=== PATIENT | female | born 1970 | race African-American/Black ===

== ENCOUNTER 2020-04-27 15:28 | Emergency (ER) | payer BC, SELFPAY ==
[2020-04-27 15:37] VITALS: BP 131/76; PULSE 108; RESP 20; TEMP 36.6; O2SAT 98
--- NOTE | 2020-04-27 16:00 | ED.URI ---
HPI - URI/Sore Throat General Chief Complaint: Upper Respiratory Infection Stated Complaint: sinus issues Time Seen by Provider: 04/27/20 15:45 Source: patient and RN notes reviewed Mode of arrival: ambulatory Limitations: no limitations History of Present Illness HPI Narrative: 50-year-old female presents with concern for 1 week history nasal congestion, rhinorrhea, headache, general malaise, fatigue. Reports fever of 102, denies yxdo-mcb-[id number] cold medication. Reports she had a rapid Covid swab done Monday which was negative MD elicited complaint: nasal congestion Related Data Home Medications Medication Instructions Recorded Confirmed metronidazole 500 mg PO BID 04/27/20 04/27/20 sertraline 50 mg PO DAILY 04/27/20 04/27/20 zolpidem 5 mg PO HS 04/27/20 04/27/20 Allergies Allergy/AdvReac Type Severity Reaction Status Date / Time acetaminophen Allergy Unknown ALL OVER Verified 04/27/20 16:06 BURNING FEELING hydrocodone Allergy Unknown ALL OVER Verified 04/27/20 16:06 BURNING FEELING Review of Systems Review of Systems: Narrative: CONSTITUTIONAL: Reports malaise, chills, sweats, and fever. EYES: Denies visual changes, redness, or discharge. ENT: Reports rhinorrhea, congestion. Denies sinus pain, otalgia and sore throat. CARDIOVASCULAR: Denies chest pain, palpitations, or edema. RESPIRATORY: Denies cough or dyspnea. GASTROINTESTINAL: Denies abdominal pain, nausea, vomiting, diarrhea SKIN: Denies rash or itching. MUSCULOSKELETAL: Denies myalgia. NEUROLOGIC: Denies headache. All systems reviewed & are unremarkable except as noted in HPI and below PMFSH Comments At time of signature, agree with nursing past medical, surgical, social and family history. There is no relevant family history pertinent to the presenting complaint Exam Narrative: Exam Narrative: GENERAL: Well-appearing, well-nourished, and in no acute distress. HEAD: Normocephalic EYES: PERRLA, conjunctivae clear ENT: Nares clear, turbinates edematous and erythematous, clear discharge. Mucous membranes moist. TM pearly al with sharp light reflex bilaterally; no tragal tenderness. Oropharynx not erythematous without lesions. Tonsils not enlarged and without exudate, no drooling, no hoarseness, no trismus, uvula midline. NECK: Supple. No lymphadenopathy CHEST: Clear to auscultation, breath sounds equal. No wheezing, rhonchi, rales, or stridor. No respiratory distress, speaks in full sentences. HEART: Regular rate and rhythm. No murmur heard. SKIN: Warm, dry, no rash. NEURO: Alert and oriented x3. PSYCH: Normal mood and affect Course Course Emergency Course: Patient is aware of diagnosis, understands and agrees to treatment plan. Anticipatory guidance given. Patient agrees to follow-up as directed and is aware of reasons to seek care at the emergency department. Portions of this record may have been created with voice recognition software Vital Signs Vital signs: Vital Signs Temperature 97.8 F 04/27/20 15:37 Pulse Rate 108 H 04/27/20 15:37 Respiratory Rate 20 04/27/20 15:37 Blood Pressure 131/76 04/27/20 15:37 Pulse Oximetry 98 04/27/20 15:37 Temperature 97.8 F 04/27/20 15:37 Pulse Rate 108 H 04/27/20 15:37 Respiratory Rate 20 04/27/20 15:37 Blood Pressure 131/76 04/27/20 15:37 Pulse Oximetry 98 04/27/20 15:37 Reviewed. MDM - URI/Sore Throat MDM Narrative Medical decision making narrative: Differential diagnosis considered: Michael virus, strep pharyngitis, allergic rhinitis, upper respiratory tract infection, sinusitis, rhinosinusitis, nasopharyngitis. viral pharyngitis, otitis media, otitis externa, pneumonia, bronchitis, viral cough syndrome, viral syndrome, and influenza. Exam findings show no acute concerns or changes; patient is non-toxic appearing and is in no distress. Patient is appropriate for outpatient treatment and follow-up. Lab Data Attestation: I reviewed the patient's lab re
== END 2020-04-27 16:26 | disposition home or self-care (01) ==
PROVIDERS: Emergency Provider Nurse Practitioner; PCP Family Medicine
DX: J06.9 Acute upper respiratory infection, unspecified (principal); Z20.828 Contact with and (suspected) exposure to other viral communicable diseases
CPT/HCPCS: 87804; 99213; G0463

== ENCOUNTER 2020-05-06 08:30 | Emergency (ER) | payer BC, SELFPAY ==
[2020-05-06 08:37] VITALS: BP 115/59; PULSE 74; RESP 16; TEMP 36.3; O2SAT 97
--- NOTE | 2020-05-06 08:55 | ED.EYEPROB ---
HPI - Eye Problem General Chief complaint: Eye Problems Stated complaint: R EYE INFECTION Time Seen by Provider: 05/06/20 08:41 Source: patient and RN notes reviewed Mode of arrival: ambulatory Limitations: no limitations History of Present Illness HPI Narrative: Patient presents today complaining of irritation, redness, and draining to the right eye since yesterday morning. She woke up yesterday morning with crusting and matting of the eyelashes as well. Denies vision changes or photophobia. She does wear contacts and has recently slept in them. She was diagnosed with a viral upper respiratory infection last week, and states that the symptoms have been improving. She has tried no dtxc-srt-rhtwoga treatment prior to arrival. MD chief complaint: eye redness Related Data Home Medications Medication Instructions Recorded Confirmed sertraline 50 mg PO DAILY 04/27/20 05/06/20 zolpidem 5 mg PO HS 04/27/20 05/06/20 Allergies Allergy/AdvReac Type Severity Reaction Status Date / Time acetaminophen Allergy Unknown ALL OVER Verified 05/06/20 08:45 BURNING FEELING hydrocodone Allergy Unknown ALL OVER Verified 05/06/20 08:45 BURNING FEELING Review of Systems Review of Systems: Narrative: CONSTITUTIONAL: Denies body aches, fever, chills, or sweats. EYES: Denies visual changes. + Right eye redness, drainage, matting ENT: Denies rhinorrhea, congestion, sore throat, or otalgia. CARDIOVASCULAR: Denies chest pain, palpitations, or edema. RESPIRATORY: Denies cough or dyspnea. GASTROINTESTINAL: Denies abdominal pain, nausea, vomiting, or diarrhea. GENITOURINARY: Denies dysuria or hematuria. SKIN: Denies rash, itching, or wounds. MUSCULOSKELETAL: Denies back pain, joint pain, or myalgia. NEUROLOGIC: Denies headache, numbness, tingling, or weakness. PSYCH: Denies depression or anxiety. [facility] Past Medical History Medical History (Updated 05/06/20 @ 08:59 by Caitlyn Garcia, SCHOOL BOAT DRIVER, ) Depression Insomnia Comments At time of signature, I have reviewed and agree with nursing past medical, surgical, social and family history unless otherwise noted. Please see nursing chart for further information. There is no relevant family history pertinent to the presenting complaint Exam Narrative: Exam Narrative: GENERAL: Well-appearing, well-nourished, and in no acute distress. HEAD: Normocephalic, atraumatic. EYES: EOMI. PERRL. Right eye: Eyelashes matted with yellow crusting drainage. Conjunctiva injected and mildly edematous. Left eye normal. ENT: Mucous membranes pink and moist. Nares clear. No rhinorrhea. TMs normal bilaterally. Throat normal. Uvula midline. NECK: Normal AROM. CHEST: No respiratory distress. EXTREMITIES: Normal range of motion. No edema. SKIN: Warm, dry, no rash. Capillary refill normal. Normal skin turgor. NEURO: No focal deficits. Alert and oriented x3. Gait steady. PSYCH: Normal affect. No signs of depression or anxiety. Course Vital Signs Vital signs: Vital Signs Temperature 97.4 F L 05/06/20 08:37 Pulse Rate 74 05/06/20 08:37 Respiratory Rate 16 05/06/20 08:37 Blood Pressure 115/59 L 05/06/20 08:37 Pulse Oximetry 97 05/06/20 08:37 Temperature 97.4 F L 05/06/20 08:37 Pulse Rate 74 05/06/20 08:37 Respiratory Rate 16 05/06/20 08:37 Blood Pressure 115/59 L 05/06/20 08:37 Pulse Oximetry 97 05/06/20 08:37 Reviewed MDM - Eye Problem Differential Diagnosis Differential diagnosis: Likely corneal abrasion, conjunctivitis, acute iritis, periorbital cellulitis and subconjunctival hemorrhage Critical Care Time Critical Care Time Critical Care Time: No Discharge Plan Discharge Clinical Impression: Bacterial conjunctivitis Patient Disposition: Home, Self-Care Condition: Stable Instructions: Conjunctivitis (ED) Additional Instructions: Please use eyedrops as directed. Do not sleep in your contacts, and wear your glasses until th
== END 2020-05-06 09:02 | disposition home or self-care (01) ==
PROVIDERS: Emergency Provider Nurse Practitioner; PCP Family Medicine
DX: H10.89 Other conjunctivitis (principal); F32.9 Major depressive disorder, single episode, unspecified
CPT/HCPCS: 99213; G0463

== ENCOUNTER 2020-12-03 11:13 | Emergency (ER) | payer BC, SELFPAY ==
[2020-12-03 11:26] VITALS: BP 131/80; PULSE 66; RESP 16; TEMP 36.4; O2SAT 98
--- NOTE | 2020-12-03 12:30 | ED.EYEPROB ---
HPI - Eye Problem General Chief complaint: Eye Problems Stated complaint: eye irritiation Source: patient and RN notes reviewed Mode of arrival: ambulatory History of Present Illness HPI Narrative: This is a 50-year-old female who presented to urgent care with complaints of eye discharge, redness and itching to her left eye that started yesterday. Patient denies any visual disturbance, any trauma or foreign object in her eye. The patient denies SOB, CP, palpitation, extremity numbness, lightheadedness, dizziness, constipation, diarrhea, chills, or fever. MD chief complaint: eye pain and eye redness Related Data Home Medications Medication Instructions Recorded Confirmed sertraline 50 mg PO DAILY 04/27/20 05/06/20 zolpidem 5 mg PO HS 04/27/20 05/06/20 montelukast mg 12/03/20 Allergies Allergy/AdvReac Type Severity Reaction Status Date / Time acetaminophen Allergy Unknown ALL OVER Verified 12/03/20 11:27 BURNING FEELING hydrocodone Allergy Unknown ALL OVER Verified 12/03/20 11:27 BURNING FEELING Review of Systems Review of Systems: Narrative: A 14 organ system Review of Systems was performed and pertinent positives included in the HPI, otherwise remaining ROS is negative. All systems reviewed & are unremarkable except as noted in HPI and below PMFSH Past Medical History Medical History (Updated 12/03/20 @ 12:19 by JW Perry) Depression Insomnia Family History Family History (System 05/07/20 @ 08:32 by Jeimy Fong) Mother Family history of thyroid disease Hypertension Carcinoma of colon Father Family history of rheumatoid arthritis Social History Social History (System 05/07/20 @ 08:32 by Jeimy Fong) Smoking status: Former smoker Second hand tobacco smoke exposure: No Smoking end date: 05/15/06 Alcohol intake: current Exam Narrative: Exam Narrative: GENERAL: This is a well-nourished, well-developed patient, in no apparent distress. HEAD: normocephalic, atraumatic. EYES: Erythematous to the left eye. Vision is grossly intact. EARS: External ears normal, auditory canals clear and without drainage, TMs normal without perforation. Hearing grossly intact. NOSE: External nose normal with no obvious nasal discharge, nares without redness, no rhinorrhea. THROAT: Mucous membranes moist, posterior pharynx clear. NECK: Neck supple, non-tender without lymphadenopathy, masses or thyromegaly. CARDIOVASCULAR: Regular rate and rhythm without murmurs, gallops, or rubs. RESPIRATORY: Clear to auscultation. Breath sounds equal bilaterally. No wheezes, rales, or rhonchi. GASTROINTESTINAL: Abdomen soft, non-tender, nondistended. Bowel sounds are active. No hepato-splenomegaly, or palpable masses. No guarding. SKIN: warm, intact with no suspicious lesions or rash, good texture and turgor. NEURO: awake, alert, and oriented to person, place and time. There were no obvious focal neurologic abnormalities. Steady gait EXTREMITIES: Normal range of motion. No edema. No calf tenderness. Negative Homans sign bilaterally. BACK: Nontender without deformity or crepitance. No flank tenderness. Course Course Emergency Course: Patient will be treated for conjunctivitis Vital Signs Vital signs: Vital Signs Temperature 97.6 F 12/03/20 11:26 Pulse Rate 66 12/03/20 11:26 Respiratory Rate 16 12/03/20 11:26 Blood Pressure 131/80 12/03/20 11:26 Pulse Oximetry 98 12/03/20 11:26 Temperature 97.6 F 12/03/20 11:26 Pulse Rate 66 12/03/20 11:26 Respiratory Rate 16 12/03/20 11:26 Blood Pressure 131/80 12/03/20 11:26 Pulse Oximetry 98 12/03/20 11:26 MDM - Eye Problem Differential Diagnosis Differential diagnosis: Likely corneal abrasion and conjunctivitis Discharge Plan Discharge Clinical Impression: Conjunctivitis Qualifiers: Conjunctivitis type: acute Acute conjunctivitis type: unspecified Laterality: left Qualified Code(s): H10.3
== END 2020-12-03 12:35 | disposition home or self-care (01) ==
PROVIDERS: Emergency Provider Nurse Practitioner; PCP Family Medicine
DX: H10.32 Unspecified acute conjunctivitis, left eye (principal); Z87.891 Personal history of nicotine dependence; F32.9 Major depressive disorder, single episode, unspecified
CPT/HCPCS: 99213; G0463

== ENCOUNTER 2023-12-07 12:45 | Outpatient (CLI) | payer MEDICAID, SELFPAY ==
[2023-12-07 19:42] LABS: Anion Gap 9 mmol/L (4-12); Blood Urea Nitrogen 11 mg/dL (7-17); Calcium 8.8 mg/dL (8.4-10.2); Carbon Dioxide 27 mmol/L (22-30); Chloride 103 mmol/L (98-107); Estimated Glomerular Filt Rate > 60; Glucose 91 mg/dL (65-110); Potassium 4.1 mmol/L (3.4-5.0); Sodium 139 mmol/L (137-145)
[2023-12-07 21:32] LABS: Hemoglobin A1C 6.1 % (<5.7)
== END 2023-12-07 12:46 | disposition home or self-care (01) ==
LOC: ANHGOSHLAB 12:47
PROVIDERS: PCP Internal Medicine; Visit Provider Clinical Nurse Specialist
DX: R73.9 Hyperglycemia, unspecified (principal)
CPT/HCPCS: 36415; 80048; 83036

== ENCOUNTER 2024-12-26 10:45 | Outpatient (CLI) | payer BC, SELFPAY ==
--- OUTSIDE RECORDS SUMMARY | 2024-12-26 11:00 | XMS_ITS | Encounter Summary ---
Author Organization [facility] Healthcare Address [address] [place] [address] Care Team Providers Care Cut Off Machine Helper Name Role Phone Unavailable Primary Care Provider Unavailabl e Reason for Visit * Diagnostic Imaging (Routine) - Closed Specialty Diagnoses / Procedures Referred By Contac t Referred To Contact Procedures Breast Imaging Screening Outside Reference Transcribed Order, Provider Referral ID Status Reason Start Date Expiration Date Visits Re quested Visits Authorized [id number] Closed 06/06/2023 07/05/2024 1 1 Encounter Details Date Type Department Care Team (Late st Contact Info) Description 05/30/2007 Hospital Encounter [facility] [address] [place] [id number] Social History Tobacco Use Types Packs/Day Years Used Date Smoking Tobacco: Former Cigarettes Q uit: 05/31/2013 Smokeless Tobacco: Never Alcohol Use Standard Drinks/Week Comments Yes 0 (1 standard drink = 0.6 oz pur e alcohol) social Personal Safety Answer Date Recorded Getting School Help Needed Not on file 04/29 Comments Unknown Sex and Gender Information Value Date Recorded Sex Assigned at Not on file Legal Sex 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 Gender Identity Not on file Sexual Orientation Not on file documented as of this encounter Plan of Treatment Not on file documented as of this encounter Procedures Procedure Name Priority Date/Time Associated Diagnosis Comments BREAST IMAGING MG SCREENING OUTSIDE REFERENCE Routine 05/30/2007 12:00 AM COAL CONVEYOR OPERATOR documented in this encounter Results * Breast Imaging Screening Outside Reference (05/30/2007 12:00 AM COAL CONVEYOR OPERATOR) Impressions [facility] - 06/06/2023 1:06 PM COAL CONVEYOR OPERATOR These images are for Reference purposes only and have not been reviewed by [facility]. There will be no report generated by a [facility] Radiologist. Narrative [facility] - 06/06/2023 1:06 PM COAL CONVEYOR OPERATOR EXAMINATION: Images For Reference Purposes Only us Provider Transcribed Order IMG MAMMO PROCEDURES Final Result [facility] documented in this encounter Visit Diagnoses Not on filedocumented in this encounter
--- OUTSIDE RECORDS SUMMARY | 2024-12-26 11:00 | XMS_ITS | Encounter Summary ---
Author Organization [facility] Healthcare Address [address] [place] [address] Care Team Providers Care Locomotive Lubricating Systems Clerk Name Role Phone Unavailable Primary Care Provider Unavailabl e Reason for Visit * Diagnostic Imaging (Routine) - Closed Specialty Diagnoses / Procedures Referred By Contac t Referred To Contact Procedures Breast Imaging Screening Outside Reference Transcribed Order, Provider Referral ID Status Reason Start Date Expiration Date Visits Re quested Visits Authorized [id number] Closed 06/06/2023 07/05/2024 1 1 Encounter Details Date Type Department Care Team (Late st Contact Info) Description 03/10/2010 Hospital Encounter [facility] [address] [place] [id number] Social History Tobacco Use Types Packs/Day Years [...] on file Legal Sex Female 6:28 PM GRADES 1 THRU 6 VISITING TEACHER Gender Identity Not on file Sexual Orientation Not on file documented as of this encounter Plan of Treatment Not on file documented as of this encounter Procedures Procedure Name Priority Date/Time Associated Diagnosis Comments BREAST IMAGING MG SCREENING OUTSIDE REFERENCE Routine 03/10/2010 12:00 AM CDT documented in this encounter Results * Breast Imaging Screening Outside Reference (03/10/2010 12:00 AM CDT) Impressions [facility] - 06/06/2023 1:04 PM GRADES 1 THRU 6 VISITING TEACHER These images are for Reference purposes only and have not been reviewed by [facility]. There will be no report generated by a [facility] Radiologist. Narrative [facility] - 06/06/2023 1:04 PM GRADES 1 THRU 6 VISITING TEACHER EXAMINATION: Images For Reference Purposes Only us Provider Transcribed Order IMG MAMMO PROCEDURES Final Result [facility] documented in this encounter Visit Diagnoses Not on filedocumented in this encounter
--- OUTSIDE RECORDS SUMMARY | 2024-12-26 11:00 | XMS_ITS | Clinical Summary ---
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 Gender Identity Not on file Sexual Orientation Not on file Plan of Treatment Health Maintenance Due Date Last Done Comments DTAP/TDAP/TD VACCINES (1 - Tdap) 01/25/1987 HEPATITIS B VACCINES (1 of 3 - 19+ 3-dose series) 01/13 HPV/Cotest (21-29) 01/25/1989 CERVICAL CANCER SCREENING 01/25/1998 HPV/Cotest (30-65) 01/25/1998 PAP SMEAR 01/25/1998 BREAST CANCER SCREENING 2008 COLORECTAL SCREENING 01/25/2013 Colorectal Cancer Screening 01/25/2013 FIT-DNA Q 3 years 01/25/2013 FIT/FOBT Q 1 year 01/25/2013 Flex Sig/CT Colonography Q 5 years 01/25/2013 ZOSTER VACCINE (1 of 2) 01/25/2018 INFLUENZA VACCINE (#1) 2024
--- OUTSIDE RECORDS SUMMARY | 2024-12-26 11:00 | XMS_ITS | Encounter Summary ---
Author Organization [employer] Address [address] [place] [address] Care Team Providers Care Reinforcing Iron Worker Helper Name Role Phone Unavailable Primary Care Provider Unavailabl e Encounter Details Date Type Department Care Team (Latest Contact Info) Description 05/19/2006 Inpatient Historical HIS PATIENT IN A BED Petrona King MD [address] [facility] [address] [place] [address] Recur Major Depres, Psychotic (CMS/HCC) (Primary Dx) Social History Tobacco Use Types Packs/Day Years Used Date Smoking Tobacco: Never Assessed Comments Unknown Sex and Gender Information Value Date Recorded Sex Assigned at Not on file Legal Sex Female 5:15 AM STEWARDESSES TEACHER Gender Identity Not on file Sexual Orientation Not on file documented as of this encounter Plan of Treatment Not on file documented as of this encounter Procedures Procedure Name Priority Date/Time Associated Diagnosis Comments DRUG SCREEN, URINE Routine 05/20/2006 1: 05 PM STEWARDESSES TEACHER URINALYSIS WITH MICROSCOPIC Routine 05/20/2006 1:05 PM STEWARDESSES TEACHER HCG QUALITATIVE, URINE Routine 7 1:05 PM STEWARDESSES TEACHER CBC WITH DIFFERENTIAL Routine 05/19/2006 5:50 AM STEWARDESSES TEACHER CBC WITH DIFFERENTIAL Routine 05/19/2006 5:50 AM STEWARDESSES TEACHER TSH Routine 05/19/2006 5:50 AM STEWARDESSES TEACHER COMPREHENSIVE METABOLIC PANEL Routine 05/19/2006 5:50 AM STEWARDESSES TEACHER documented in this encounter Results * (ABNORMAL) URINALYSIS WITH MICROSCOPIC (05/20/2006 1:05 PM STEWARDESSES TEACHER) COLOR UA Yellow INTERFACE SYSTEM CLARITY UA Slt. Cloudy(A) Clear INTERFACE SYSTEM SPECIFIC GRAVITY UA 1.012 1.001 - 1.035 INTERFACE SYSTEM PH UA 6.0 5.0 - 8.0 INTERFACE SYSTEM LEUKOCYTE ESTERASE UA Negative Negative INTERFACE SYSTEM NITRITE UA Negative Negative INTERFACE SYSTEM PROTEIN UA Negative Negative INTERFACE SYSTEM GLUCOSE UA Negative Negative INTERFACE SYSTEM KETONES UA Negative Negative INTERFACE SYSTEM UROBILINOGEN UA <1 <=1 mg/dL INTE RFACE SYSTEM BILIRUBIN UA Negative Negative INTERFA CE SYSTEM BLOOD UA Negative Negative INTERFACE SYSTEM WBC UA 4 0 - 5 /HPF INTERFACE SYSTEM RBC UA 1 0 - 4 /HPF INTERFACE SYSTEM BACTERIA UA 1+(A) None Seen /HPF INTERFACE SYSTEM EPITHELIAL CELLS, URINE Many /HPF INTERFACE SYSTEM 05/20/2006 1:05 PM STEWARDESSES TEACHER Petrona King MD URINE ORDERABLES Edited Performing Organization Address City/[facility] de Phone Number INTERFACE SYSTEM Refer to clinic/hospital department * BETA HCG QUALITATIVE, URINE (05/20/2006 1:05 PM STEWARDESSES TEACHER) HCG QUAL URINE Negative Negative INTER FACE SYSTEM SPECIFIC GRAVITY UA 1.012 1.001 - 1.035 INTERFACE SYSTEM 05/20/2006 1:05 PM STEWARDESSES TEACHER Petrona King MD URINE ORDERABLES Edited Performing Organization Address [facility] de Phone Number INTERFACE SYSTEM Refer to clinic/hospital department * DRUG SCREEN, URINE (05/20/2006 1:05 PM STEWARDESSES TEACHER) COMMENT, TOXICOLOGY See Separate Comment INTERFACE SYSTEM Comment: Urine sample was not handled as a legal specimen and was received without a chain of custody. The result should be used only for medical purposes. False positive and erroneous results can occur due to cross-reacting sub stances and other factors. Depending on the clinical context, confirmation of all presumptive positive results by a more specific alternate method is recommended. A negative result indicates the analyte, if present, is below the screening threshold. Drug Ref. Range Screening Threshold Amphetamines Negative 1000 ng/mL Barbituates Negative 200 ng/mL Benzodiazepines Negative 300 ng/mL Cannabinoids Negative 50 ng/mL Cocaine Metabolites Negative 300 ng/mL Opiates Negative 300 ng/mL Phencycldine Negative 25 ng/mL The cut-off threshold, known cross-reactive compounds, drugs,and specificity information for each of the urine drugs of abuse are available on the [facility] Intranet at: [email or web address] Select: Drugs of Abuse ? [facility] To inquire about any potential cross-reactivity of a specific drug not listed at this site, please contact the Chemistry Lab at . AMPHETAMINE QUAL, URINE Negative Negative INTERFACE SYSTEM BARBITURATE QUAL, URINE Negative Negative INTERFACE SYSTEM BENZODIAZEPINE QUAL, URINE Negative Negative INTERFACE SYSTEM CANNABINOIDS QUAL, URINE Negative Negative INTERFACE SYSTEM COCAINE QUAL URINE Negative Negative I NTERFACE SYSTEM OPIATE QUAL, URINE Negative Negative I NTERFACE SYSTEM PCP QUAL, URINE Negative Negative INTE RFACE SYSTEM 05/20/2006 1:05 PM STEWARDESSES TEACHER us Petrona King MD URINE ORDERABLES Edited INTERFACE SYSTEM Refer to clinic/hospital department * CBC WITH DIFFERENTIAL (05/19/2006 5:50 AM STEWARDESSES TEACHER) NEUTROPHILS 56 45 - 70 % INTERFAC E SYSTEM LYMPHOCYTES 30 16 - 45 % INTERFAC E SYSTEM MONOCYTES 13 3 - 13 % INTERFACE SYSTEM EOSINOPHILS 2 0 - 7 % INTERFAC E SYSTEM BASOPHILS 0 0 - 2 % INTERFACE SYSTEM NEUTROPHIL ABSOLUTE 4.54 1.90 - 7.00 K/uL INTERFACE SYSTEM LYMPHOCYTE ABSOLUTE 2.46 0.70 - 4.50 K/uL INTERFACE SYSTEM MONOCYTE ABSOLUTE 1.03 0.10 - 1.30 K/uL INTERFACE SYSTEM EOSINOPHIL ABSOLUTE 0.13 0.00 - 0.70 K/uL INTERFACE SYSTEM BASOPHILS ABSOLUTE 0.02 0.00 - 0.20 K/uL INTERFACE SYSTEM 05/19/2006 5:50 AM STEWARDESSES TEACHER Evan Pelaez (Excluded Provider) Fernando LIVINGSTON HEMATOLO GY ORDERABLES Edited INTERFACE SYSTEM Refer to clinic/hospital department * (ABNORMAL) CBC WITH DIFFERENTIAL (05/19/2006 5:50 AM STEWARDESSES TEACHER) WBC 8.2 4.0 - 9.8 K/uL INTERFACE SYSTEM RBC 4.40 3.90 - 4.90 M/uL INTERFACE SYSTEM HEMOGLOBIN 12.6 11.8 - 14.8 g/dL INTERFACE SYSTEM HEMATOCRIT 37.7 35.5 - 44.0 % INTERFACE SYSTEM MCV 85.7 82.0 - 99.0 fL INTERFACE SYSTEM MCH 28.6 27.2 - 32.6 pg INTERFACE SYSTEM MCHC 33.4 31.5 - 35.5 % INTERFACE SYSTEM RDW 13.3 11.5 - 14.5 % INTERFACE SYSTEM RDW-STDEV 41.7 37.1 - 48.7 fL INTERFACE SYSTEM PLATELETS 392(H) 140 - 350 K/uL INTERFACE SYSTEM MPV 10.1 9.3 - 12.4 fL INTERFACE SYSTEM 05/19/2006 5:50 AM STEWARDESSES TEACHER [facility] (Excluded Provider) Fernando LIVINGSTON HEMATOLO GY ORDERABLES Edited Performing Organization Address [facility] de Phone Number INTERFACE SYSTEM Refer to clinic/hospital department * TSH (05/19/2006 5:50 AM STEWARDESSES TEACHER) TSH 1.28 0.27 - 4.20 uU/mL INTERFACE SYSTEM 05/19/2006 5:50 AM STEWARDESSES TEACHER [facility] (Excluded Provider) Fernando LIVINGSTON CHEMISTR Y ORDERABLES Edited Performing Organization Address [facility] Co de Phone Number INTERFACE SYSTEM Refer to clinic/hospital department * (ABNORMAL) COMPREHENSIVE METABOLIC PANEL (05/19/2006 5:50 AM STEWARDESSES TEACHER) GLUCOSE 91 65 - 99 mg/dL INTERFACE SYSTEM CREATININE 0.91 0.51 - 0.95 mg/dL INTERFACE SYSTEM CALCIUM 8.8 8.4 - 10.2 mg/dL INTERFACE SYSTEM ALKALINE PHOSPHATASE 81 35 - 104 U/L INTERFACE SYSTEM AST 17 12 - 32 U/L INTERFACE SYSTEM ALT 17 0 - 31 U/L INTERFACE SYSTEM TOTAL PROTEIN 7.5 6.3 - 8.6 g/dL INTERFACE SYSTEM ALBUMIN 3.9 3.4 - 4.8 g/dL INTERFACE SYSTEM BILIRUBIN TOTAL 0.2 0.2 - 1.0 mg/dL INTERFACE SYSTEM BUN 11 6 - 20 mg/dL INTERFACE SYSTEM SODIUM 140 135 - 145 mmol/L INTERFACE SYSTEM POTASSIUM 3.9 3.5 - 4.9 mmol/L INTERFACE SYSTEM CHLORIDE 101 96 - 108 mmol/L INTERFACE SYSTEM CO2 31(H) 22 - 30 mmol/L INTERFACE SYSTEM GFR, >60 >=60 mL/min/1.7 sq meter INTERFACE SYSTEM GFR >60 >=60 mL/min/1.7 sq meter INTERFACE SYSTEM Comment: Estimated GFR rate interpretative information for both Americans and non- Americans is available on the [facility] Intranet at: [email or web address] lumpkinLoop/[email or web address] Select: Lab Policies and Procedures Select: Reference Ranges - GFR 05/19/2006 5:50 AM STEWARDESSES TEACHER Mohd Azfar (Excluded Provider) Fernando LIVINGSTON CHEMISTR Y ORDERABLES Edited INTERFACE SYSTEM Refer to clinic/hospital department documented in this encounter Visit Diagnoses Diagnosis Major depressive disorder, recurrent episode, severe, specified as with psychotic behavior (CMS/HCC)- Primary Major depressive disorder, recurrent episode, severe, specified as with psychotic behavior documented in this encounter
--- OUTSIDE RECORDS SUMMARY | 2024-12-26 11:00 | XMS_ITS | Encounter Summary ---
Author Organization [facility] Address [address] [place] [address] Care Team Providers Care Production Intern Name Role Phone Maurice Roche MD Primary Care Provider [phone] Sonido Ferrari MD Unavailable [phone] Encounter Details Date Type Department Care Team (Late st Contact Info) Description 09/17/2019 Hospital Follow-up Call [facility] Telemetry Unit [address] [place] [address] Farideh Pereyra, RN Social History Tobacco Use Types Packs/Day Years Used Date Smoking Tobacco: Every Day Cigarettes Smokeless Tobacco: Never Alcohol Use Standard Drinks/Week Comments Yes 3 (1 standard drink = 0.6 oz pur e alcohol) weekly Humiliation, Afraid, Rape, and Kick questionnair e Answer Date Recorded Fear of Current or Ex-Partner No Emotionally Abused No 09/13/2019 Physically Abused No 09/13/2019 Sexually Abused No 09/13/2019 Social Connection and Isolat ion Panel [NHANES] Answer Date Recorded Frequency of Communication w ith Friends and Family More than three times a week 09/13/2019 Frequency of Social Gatherin gs with Friends and Family More than three times a week 09/13/2019 Attends Jehovah'S Witness Services More than 4 times per year 09/13/2019 Active Member of Clubs or Organizations No 09/13/2019 Attends Club or Organization Meetings Never 09/13/2019 Marital Status 09/13/2019 Overall Financial Resource Strain (CARDIA) Answe r Date Recorded Difficulty of Paying Living Expenses Not hard at all 09/13/2019 [facility] [place] [facility] Occup[facility] ional [facility] - Occupational Stress Questionnaire Answer Date Recorded Feeling of Stress To some extent 09/13/2019 Exercise Vital Sign Answer Date Recorde d Days of Exercise per Week 0 days 2019 Minutes of Exercise per Session 0 min 09/13/2019 Hunger Vital Sign Answer Date Recorded Worried About Running Out of Food in the Last Ye ar Never true 09/13/2019 Ran Out of Food in the Last Year Never true 09/13/2019 PRAPARE - Transportation Answer Date Re corded Lack of Transportation (Medical) No 09/13/2019 Lack of Transportation (Non-Medical) No 09/13/2019 Comments No Sex and Gender Information Value Date Recorded Sex Assigned at Not on file Legal Sex Female 9:41 PM CDT Gender Identity Not on file Sexual Orientation Not on file COVID-19 Exposure Response Date Recorded In the last month, have you been in contact with someone who was confirmed or suspected to have Coronavirus / COVID-19? No / Unsure 09/20/2019 11:05 AM CDT documented as of this encounter Functional Status * RETIRED Are you deaf or do you have serious difficulty hearing Answer Date of Assessment Author Status No 09/14/2019 4:02 PM CDT Activ e * RETIRED Are you blind or do you have serious difficulty seeing, even when wearing glasses? Answer Date of Assessment Author Status No 09/14/2019 4:02 PM CDT Activ e * Do you have serious difficulty walking or climbing stairs? Answer Date of Assessment Author Status No 09/14/2019 4:02 PM CDT Amna Lee R N Active * Do you have difficulty dressing or bathing? Answer Date of Assessment Author Status No 09/14/2019 4:02 PM CDT Amna Lee R N Active * Because of a physical, mental, or emotional condition, do you have difficulty doing errands alone such as visiting a doctor's office or shopping? Answer Date of Assessment Author Status No 09/14/2019 4:02 PM CDT Amna Lee R N Active documented as of this encounter Mental Status * Because of a physical, mental, or emotional condition, do you have serious difficulty concentrating, remembering, or making decisions? Answer Entry Date Author Status No 09/14/2019 4:02 PM CDT Amna Lee R N Active documented in this encounter Plan of Treatment Not on file documented as of this encounter Visit Diagnoses Not on filedocumented in this encounter Care Teams Production Intern Relationship Specialty Start Date End Date Maurice Roche MD [address] [place] [address] PCP - General FAMILY PRACTICE 09/13/19 Sonido Ferrari MD [address] [address] Consulting Physician CARDIOVASCULAR DISEASE 09/13/19 documented as of this encounter
--- OUTSIDE RECORDS SUMMARY | 2024-12-26 11:00 | XMS_ITS | Encounter Summary ---
Author Organization [facility] Healthcare Address [address] [place] [address] Care Team Providers Care Asphalt Heater Tender Name Role Phone Unavailable Primary Care Provider Unavailabl e Reason for Visit * Diagnostic Imaging (Routine) - Closed Specialty Diagnoses / Procedures Referred By Contac t Referred To Contact Procedures Breast Imaging Screening Outside Reference Transcribed Order, Provider Referral ID Status Reason Start Date Expiration Date Visits Re quested Visits Authorized [id number] Closed 06/06/2023 07/05/2024 1 1 Encounter Details Date Type Department Care Team (Late st Contact Info) Description 08/05/2015 Hospital Encounter [facility] [address] [place] [id number] Social History Tobacco Use Types Packs/Day Years [...] on file Legal Sex Female 6:28 PM SALES REPRESENTATIVE ADVERTISING Gender Identity Not on file Sexual Orientation Not on file documented as of this encounter Plan of Treatment Not on file documented as of this encounter Procedures Procedure Name Priority Date/Time Associated Diagnosis Comments BREAST IMAGING MG SCREENING OUTSIDE REFERENCE Routine 08/05/2015 12:00 AM CDT documented in this encounter Results * Breast Imaging Screening Outside Reference (08/05/2015 12:00 AM CDT) Impressions [facility] - 06/06/2023 1:02 PM SALES REPRESENTATIVE ADVERTISING These images are for Reference purposes only and have not been reviewed by [facility]. There will be no report generated by a [facility]iologist. Narrative [facility] - 06/06/2023 1:02 PM SALES REPRESENTATIVE ADVERTISING EXAMINATION: Images For Reference Purposes Only us Provider Transcribed Order IMG MAMMO PROCEDURES Final Result [facility] documented in this encounter Visit Diagnoses Not on filedocumented in this encounter
--- OUTSIDE RECORDS SUMMARY | 2024-12-26 11:00 | XMS_ITS | Encounter Summary ---
Author Organization [facility] Healthcare Address [address] [place] [address] Care Team Providers Care Clinical Sciences Professor Name Role Phone Unavailable Primary Care Provider Unavailabl e Reason for Visit * Diagnostic Imaging (Routine) - Closed Specialty Diagnoses / Procedures Referred By Contac t Referred To Contact Procedures Breast Imaging Diagnostic Outside Reference Transcribed Order, Provider Referral ID Status Reason Start Date Expiration Date Visits Re quested Visits Authorized [id number] Closed 06/06/2023 07/05/2024 1 1 Encounter Details Date Type Department Care Team (Late st Contact Info) Description 06/20/2007 Hospital Encounter [facility] [address] [place] [phone] Social History Tobacco Use Types Packs/Day Years [...] on file Legal Sex Female 6:28 PM CORPORATE ANALYST Gender Identity Not on file Sexual Orientation Not on file documented as of this encounter Plan of Treatment Not on file documented as of this encounter Procedures Procedure Name Priority Date/Time Associated Diagnosis Comments BREAST IMAGING MG DIAGNOSTIC OUTSIDE REFERENCE Routine 06/20/2007 12:00 AM CORPORATE ANALYST documented in this encounter Results * Breast Imaging Diagnostic Outside Reference (06/20/2007 12:00 AM CORPORATE ANALYST) Impressions [facility] - 06/06/2023 1:05 PM CORPORATE ANALYST These images are for Reference purposes only and have not been reviewed by [facility]. There will be no report generated by a [facility] Radiologist. Narrative [facility] - 06/06/2023 1:05 PM CORPORATE ANALYST EXAMINATION: Images For Reference Purposes Only us Provider Transcribed Order IMG MAMMO PROCEDURES Final Result [facility] documented in this encounter Visit Diagnoses Not on filedocumented in this encounter
--- OUTSIDE RECORDS SUMMARY | 2024-12-26 11:00 | XMS_ITS | Encounter Summary ---
Author Organization [facility] Healthcare Address [address] [place] [address] Care Team Providers Care Universal Grinder Set Up Operator Name Role Phone Unavailable Primary Care Provider Unavailabl e Reason for Visit * Diagnostic Imaging (Routine) - Closed Specialty Diagnoses / Procedures Referred By Contac t Referred To Contact Procedures Breast Imaging Screening Outside Reference Transcribed Order, Provider Referral ID Status Reason Start Date Expiration Date Visits Re quested Visits Authorized [id number] Closed 06/06/2023 07/05/2024 1 1 Encounter Details Date Type Department Care Team (Late st Contact Info) Description 07/03/2012 Hospital Encounter [facility] [address] [place] [phone] Social History Tobacco Use Types Packs/Day Years [...] on file Legal Sex Female 6:28 PM HOSPICE CASE MANAGER Gender Identity Not on file Sexual Orientation Not on file documented as of this encounter Plan of Treatment Not on file documented as of this encounter Procedures Procedure Name Priority Date/Time Associated Diagnosis Comments BREAST IMAGING MG SCREENING OUTSIDE REFERENCE Routine 07/03/2012 12:00 AM HOSPICE CASE MANAGER documented in this encounter Results * Breast Imaging Screening Outside Reference (07/03/2012 12:00 AM HOSPICE CASE MANAGER) Impressions [facility] - 06/06/2023 1:03 PM HOSPICE CASE MANAGER These images are for Reference purposes only and have not been reviewed by [facility]. There will be no report generated by a [facility] Radiologist. Narrative [facility] - 06/06/2023 1:03 PM HOSPICE CASE MANAGER EXAMINATION: Images For Reference Purposes Only us Provider Transcribed Order IMG MAMMO PROCEDURES Final Result [facility] documented in this encounter Visit Diagnoses Not on filedocumented in this encounter
--- OUTSIDE RECORDS SUMMARY | 2024-12-26 11:00 | XMS_ITS | Clinical Summary ---
Author Organization [facility] Address [address] [place] [address] Care Team Providers Care Conductor Road Freight Name Role Phone Unavailable Primary Care Provider Unavailabl e Source Comments [facility],non-owned Affiliates and Associated Physician Practices is amultiple site organization consisting of ambulatory clinics and hospital sitesin [place], [place] and [place]. This disclosure is being madepursuant to the Care Everywhere program and may not contain all information available regarding this patient. Last updated 18.[facility] Social History Tobacco Use Types Packs/Day Years Used Date Smoking Tobacco: Never Assessed Comments Unknown Sex and Gender Information Value Date Recorded Sex Assigned at Not on file Legal Sex Female 6:24 AM IRRIGATION ENGINEER Gender Identity Not on file Sexual Orientation Not on file Last Filed Vital Signs Vital Sign Reading Time Taken Comments Blood Pressure 122/72 06/03/2017 7:06 AM IRRIGATION ENGINEER Pulse 71 06/03/2017 7:06 AM IRRIGATION ENGINEER Temperature 36.7 C (98 F) 06/03/2017 7:06 AM IRRIGATION ENGINEER Respiratory Rate 16 06/03/2017 7:06 AM IRRIGATION ENGINEER Oxygen Saturation 98% 06/03/2017 7:06 AM IRRIGATION ENGINEER Inhaled Oxygen Concentration - - Weight 81.6 kg (180 lb) 06/03/2017 7:06 AM IRRIGATION ENGINEER Height 162.6 cm (5' 4) 06/03/2017 7:06 AM IRRIGATION ENGINEER Body Mass Index 30.9 06/03/2017 7:06 AM IRRIGATION ENGINEER Plan of Treatment Health Maintenance Due Date Last Done Comments COLOGUARD (AGES 45-75) - COL ON CA SCREENING 1968 COLON MONITORING 1968 COLONOSCOPY - COLON CA SCREENING 1968 CT COLONOGRAPHY - COLON CA SCREENING 1968 Colorectal Cancer Screening 1968 FIT - COLON CA SCREENING 1968 FLEX SIG - COLON CA SCREENING 1968 LIPID TESTING 1968 MAMMOGRAM 1968 HIV SCREENING 01/25/1983 HEPATITIS C SCREENING 01/21/1986 DTAP/TDAP/TD VACCINES (1 - Tdap) 01/25/1987 HEPATITIS B VACCINE (1 of 3 - 19+ 3-dose series) 01/25/1987 PNEUMOCOCCAL VACCINE 50+ (1 of 1 - PCV) 01/25/2018 ZOSTER VACCINE (1 of 2) 01/25/2018 COVID-19 VACCINE (1 - 2023-2 5 season) 2024 DEPRESSION SCREENING 05/15/2024 INFLUENZA VACCINE (#1) 2025 HIB VACCINE Aged Out No longer eligi ble based on patient's age to complete this topic HPV VACCINE Aged Out No longer eligi ble based on patient's age to complete this topic MENINGOCOCCAL (Group B) VACC INE SHARED DECISION-MAKING Aged Out No longer eligibl e based on patient's age to complete this topic MENINGOCOCCAL GROUPS A/C/Y/W VACCINE Aged Out No longer eligible b ased on patient's age to complete this topic
--- OUTSIDE RECORDS SUMMARY | 2024-12-26 11:01 | XMS_ITS | Encounter Summary ---
Author Organization [facility] Healthcare Address [address] [place] [address] Care Team Providers Care Cap Parts Cutter Name Role Phone Unavailable Primary Care Provider Unavailabl e Reason for Visit * Diagnostic Imaging (Routine) - Closed Specialty Diagnoses / Procedures Referred By Contac t Referred To Contact Procedures Breast Imaging Screening Outside Reference Transcribed Order, Provider Referral ID Status Reason Start Date Expiration Date Visits Re quested Visits Authorized [id number] Closed 06/06/2023 07/05/2024 1 1 Encounter Details Date Type Department Care Team (Late st Contact Info) Description 05/01/2018 Hospital Encounter [facility] [address] [place] [id number] Social History Tobacco Use Types Packs/Day Years [...] on file Legal Sex Female 6:28 PM MECHANICAL RESEARCH ENGINEER Gender Identity Not on file Sexual Orientation Not on file documented as of this encounter Plan of Treatment Not on file documented as of this encounter Procedures Procedure Name Priority Date/Time Associated Diagnosis Comments BREAST IMAGING MG SCREENING OUTSIDE REFERENCE Routine 05/01/2018 12:00 AM MECHANICAL RESEARCH ENGINEER documented in this encounter Results * Breast Imaging Screening Outside Reference (05/01/2018 12:00 AM MECHANICAL RESEARCH ENGINEER) Impressions [facility] - 06/06/2023 1:00 PM MECHANICAL RESEARCH ENGINEER These images are for Reference purposes only and have not been reviewed by [facility]. There will be no report generated by a [facility] Radiologist. Narrative [facility] - 06/06/2023 1:00 PM MECHANICAL RESEARCH ENGINEER EXAMINATION: Images For Reference Purposes Only us Provider Transcribed Order IMG MAMMO PROCEDURES Final Result [facility] documented in this encounter Visit Diagnoses Not on filedocumented in this encounter
--- OUTSIDE RECORDS SUMMARY | 2024-12-26 11:01 | XMS_ITS | Clinical Summary ---
Author Organization [facility] Address [facility] [place] [address] Care Team Providers Care Occupational Therapy Aide Name Role Phone Maurice Roche MD Primary Care Provider [phone] Sonido Ferrari MD Unavailable [phone] Allergies Active Allergy Reactions Criticality Noted Date Comments Hydrocodone-Acetamino phen Other (see comment) 09/13/2019 Makes my insides burn Medications escitalopram 20 MG tablet Take 20 mg by mouth daily. 07/24/2019 Active zolpidem 5 MG tablet Take 5 mg by mouth nightly at bedtime. 07/24/2019 Active aspirin 325 MG tablet Take 325 mg by mouth daily. Active Active Problems Problem Noted Date Diagnosed Date Anxiety 09/20/2019 A-fib ([facility]) 09/14/2019 New onset a-fib ([facility]) 09/13/2019 Social History Tobacco Use Types Packs/Day Years [...] than three times a week 09/13/2019 Attends [employer] More than 4 times per year 09/13/2019 Active Member of Clubs or Organizations No 09/13/2019 Attends Club or Organization Meetings Never 09/13/2019 Marital Status 09/13/2019 Overall Financial Resource Strain (CARDIA) Answe r Date Recorded Difficulty of Paying Living Expenses Not hard at all 09/13/2019 [facility] Occupat ional Health - Occupational Stress [...] Sign Reading Time Taken Comments Blood Pressure 120/68 01/09/2020 10:03 AM CDT Pulse 66 01/09/2020 10:03 AM CDT Temperature 36.3 C (97.4 F) 09/14/2019 3:15 PM CDT Respiratory Rate 18 09/14/2019 3:15 PM CDT Oxygen Saturation 97% 01/09/2020 10:03 AM CDT Inhaled Oxygen Concentration - - Weight 91.6 kg (202 lb) 01/09/2020 10:03 AM CDT Height 162.6 cm (5' 4) 01/09/2020 10:03 AM CDT Body Mass Index 34.67 01/09/2020 10:03 AM CDT Plan of Treatment Health Maintenance Due Date Last Done Comments Colorectal Cancer Screening Colonoscopy (10 Years) 1968 Annual Physical 01/25/1971 Hepatitis C 01/25/1986 DTaP, Tdap and Td Vaccines ( 1 - Tdap) 01/25/1987 Hepatitis B Vaccines (1 of 3 - 19+ 3-dose series) 01/25/1987 Pneumococcal Vaccine: 50+ Ye ars (1 of 2 - PCV) 01/25/1987 Mammogram Screening 2008 Zoster Vaccines (1 of 2) 01/25/2018 COVID-19 Vaccine (1 - 2023-2 5 season) 2024 Meningococcal B Vaccine Aged Out No l onger eligible based on patient's age to complete this topic Meningococcal Vaccine Aged Out No lor slim eligible based on patient's age to complete this topic RSV Immunizations Under 20 Months Aged Out No longer eligible based on patient's age to complete this [place] [id number] [facility] [place] [id number] Advance Directives * Full Code (Latest Code Status on File) Date Activated Date Inactivated Comments 09/13/2019 3:13 PM 09/14/2019 6:57 PM Care Teams Occupational Therapy Aide Relationship Specialty Start Date End Date Maurice Roche MD [address] [place] [address] PCP - General FAMILY PRACTICE 09/13/19 Sonido Ferrari MD NPI: [id number] [place] [address]. [address] [address] Consulting Physician CARDIOVASCULAR DISEASE 09/13/19
--- OUTSIDE RECORDS SUMMARY | 2024-12-26 11:01 | XMS_ITS ---
Author Organization Formerly [facility] [place] ([id number]) Address [address] [place] [address] Care Team Providers Care Public Health Nurse Name Role Phone Maurice Roche MD Primary Care Provider Unavail able Makenna Jones Unavailable [phone] [facility], Provider Unavailable Unavailab REASON FOR VISIT [facility] To [facility] Conversion Encounter Medications Medication SIG (Take, Route, Frequency, Duration) Notes Start Date End Date Status Zoloft 100 MG 1 tab(s) orally once a day Active Montelukast Sodium 10 MG 1 tab(s) orally once a day; Duration: 30 day(s) Active Ambien 5 MG 1 tab(s) orally once a day (at bedtime) Active Cetirizine HCl 10 MG 1 tab(s) orally Qday Active Famotidine 40 MG 1 tab(s) orally Qday Active Encounters Encounter Location Date Provider Diagnosis [address] [address] 10/28/2023 Provider [facility] Idiopathic urticaria L50.1 Assessments Encounter Date Diagnosis (ICD Code) Assessment Notes Treatment Notes Treatment Clinical Notes Section Notes 10/28/2023 Idiopathic urticaria (ICD-10 - L50.1) Plan Of Treatment Medication Medication Name Sig Start Date Stop Date Notes Zoloft 100 MG 1 tab(s) orally once a day Montelukast Sodium 10 MG 1 tab(s) orally once a day; Duration: 30 day(s) Ambien 5 MG 1 tab(s) orally once a day (at bedtime) Cetirizine HCl 10 MG 1 tab(s) orally Qday Famotidine 40 MG 1 tab(s) orally Qday Progress Notes * Stefani HADDADB:[birth year] (54 yo F)Acc No.[id number]:10/28/2023 Patient: Linnette SANTAMARIA Provider: Radha Limon :1970 A ge:53 Y S ex:Female Date:10/28/2023 Address:[address] [place] [address] [id number] Pcp:Maurice Roche MD Subjective: * Chief Complaints: * 1 . Multum To Medispan Conversion Encounter. * Medical History: Objective: * Vitals: Assessment: * Assessment: 1. I diopathic urticaria - L50.1 (Primary) Plan: * Treatment: 2. O thers Continue Ambien Tablet, 5 MG, 1 tab(s), orally, once a day (at bedtime); C ontinue Zoloft Tablet, 100 MG, 1 tab(s), orally, once a day; S tart Montelukast Sodium Tablet, 10 MG, 1 tab(s), orally, once a day, 30 day(s), 30, Refills 3. * Billing Information: * Visit Code: * Procedure Codes: * Electronic signature of Prov imanr [facility] on 12/26/2024 at 11:00 AM CDT Sign off status: Pending * Provider: Radha Limon Date: 10/28/2023 Generated for Yaw jurado/Tanner/Jayesh on: 12/26/2024 11:00 AM CDT
--- OUTSIDE RECORDS SUMMARY | 2024-12-26 11:01 | XMS_ITS | Clinical Summary ---
Author Organization [facility] [address] [place] [address] Care Team Providers Care Protozoologist Name Role Phone Bk Mathew DO Primary Care Provider [phone] Sushila Edmondson NP Unavailable [phone] Allergies Active Allergy Reactions Criticality Noted Date Comments Hydrocodone-Acetamin ophen Other (See comments) Low 09/13/2019 Makes my insides burn Medications zolpidem (AMBIEN) 5 mg tabletIndication s:Sleep-Onset Insomnia 2 05/10/[address] (VOLTAREN) 50 mg EC tablet 05/24/2018 Active VITAMIN D2 50,000 unit capsule 03/14/2018 Active escitalopram (LEXAPRO) 20 mg tablet 2 09/13/2018 Active aspirin 325 mg tablet Take 1 tablet (325 mg total) by mouth daily Active buPROPion XL (WELLBUTRIN XL) 150 mg 24 hr tablet Take 1 tablet (150 mg total) by mouth daily 02/16/2023 Active montelukast (SINGULAIR) 10 mg tablet Take 1 tablet (10 mg total) by mouth daily 02/24/2023 Active sertraline (ZOLOFT) 100 mg tablet Take 1 tablet (100 mg total) by mouth daily 02/24/2023 Active cetirizine (ZyrTEC) 10 mg tablet 1 tab(s) orally Qday Active famotidine (PEPCID) 40 mg tablet 1 tab(s) orally Qday Active Active Problems Problem Noted Date Diagnosed Date Breast pain, left 07/03/2023 Allergic rhinitis 03/28/2023 Chronic rhinitis 03/28/2023 Allergic rhinitis due to animal hair and dander 03/28/2023 Allergic rhinitis due to pollen 03/28/2023 Chronic allergic conjunctivitis 03/28/2023 Mild intermittent asthma 03/28/2023 Mild persistent asthma without complication 03/15 Moderate persistent asthma without complication 03/28/2023 Uncomplicated severe persistent asthma 3 Anxiety 09/20/2019 Atrial fibrillation 09/13/2019 Weight loss counseling, encounter for 06/30/2018 Assessment & Plan (06/30/2018 9:48 AM SEWING MACHINE OPERATOR ZIPPER): Discussed that weight loss will require calorie deficit. Calculated basal metabolic rate and estimated total energy expenditure; discussed 500-1000 kcal/day deficit to lose 1-2 lb per week. Asked to keep detailed food diary for at least 1 week and bring to next visit. Discussed relatively small, although significant, role of exercise in weight loss; greater importance in weight maintenance. Metabolic and nutritional disorder 06/30/2018 Assessment & Plan (06/30/2018 9:55 AM SEWING MACHINE OPERATOR ZIPPER): Discussed recent A1c 5.8 c/w prediabetes. Discussed insulin resistance including affect on weight and risk for progression to diabetes. Recommended low-carb, low-glycemic diet; choose whole grains and avoid more highly processed carbohydrates. Discussed potential benefits of this w/r/t gut microbiome. Referred to ADA and [facility] websites for additional information on topics including glycemic index/carbohydrate choices, protein sources. Consider metformin, GLP-1 analog. If not checked recently, check CBC, CMP, A1c, FLP, TSH/T4, B12, folic acid, vit D. Other fatigue 06/30/2018 Assessment & Plan (06/30/2018 9:51 AM SEWING MACHINE OPERATOR ZIPPER): Will review recent labs when available. Consider sleep study. Discussed importance of adequate sleep; good sleep hygiene in controlling weight as well as for overall health. Discussed comorbidities associated with sleep apnea, including effects on weight, and stressed importance of adequate treatment if present. Obesity (BMI 30-39.9) 06/30/2018 Assessment & Plan (06/30/2018 9:53 AM SEWING MACHINE OPERATOR ZIPPER): Obesity is unchanged. General weight loss/lifestyle modification strategies discussed (elicit support from others; identify saboteurs; non-food rewards, etc). Behavioral treatment: recommended counseling/CBT. Diet interventions: low calorie (1000 kCal/d) deficit diet. Informal exercise measures discussed, e.g. taking stairs instead of elevator. Regular aerobic exercise program discussed. More detailed recommendations pending review of labs, food record. Disordered eating 06/30/2018 Assessment & Plan (06/30/2018 9:54 AM SEWING MACHINE OPERATOR ZIPPER): Does not meet criteria for BED. May be a candidate for Contrave/bupropion in setting of depression. Depression 05/31/2018 Overview (05/31/2018): Since .Saw psychiatrist in the past. Immunizations Immunization Administration Dates Next Due PPD TEST 03/28/2023 Surgical History Surgery Date Site/Laterality Comments HYSTERECTOMY 05/15/2011 - 05/14/2012 Medical History Medical History Date Comments Sciatica Family History Medical History Relation Name Comments Glaucoma Father Brain cancer Father's Sister Colon cancer Mother Hypertension Mother Obesity Mother Multiple sclerosis Mother's Sister Relation Name Status Comments Father Father's Sister Mother Mother's Sister Social History Tobacco Use Types Packs/Day Years Used Date Smoking Tobacco: Former Cigarettes Q uit: 05/31/2013 Smokeless Tobacco: Never Tobacco Cessation:Counseling Given: Not Answered Alcohol Use Standard Drinks/Week Comments Yes 0 (1 standard drink = 0.6 oz pur e alcohol) social Personal Safety Answer Date Recorded Getting School Help Needed Not on file 04/29 Comments Unknown Sex and Gender Information Value Date Recorded Sex Assigned at Not on file Legal Sex Female 6:28 PM SEWING MACHINE OPERATOR ZIPPER Gender Identity Not on file Sexual Orientation Not on file Obstetrics History Last Filed Vital Signs Vital Sign Reading Time Taken Comments Blood Pressure 136/72 03/28/2023 3:18 PM SEWING MACHINE OPERATOR ZIPPER Pulse 64 03/28/2023 3:18 PM SEWING MACHINE OPERATOR ZIPPER Temperature 37 C (98.6 F) 03/28/2023 3:18 PM SEWING MACHINE OPERATOR ZIPPER Respiratory Rate 20 03/28/2023 3:18 PM SEWING MACHINE OPERATOR ZIPPER Oxygen Saturation 97% 03/28/2023 3:18 PM SEWING MACHINE OPERATOR ZIPPER Inhaled Oxygen Concentration - - Weight 90.7 kg (199 lb 15.3 oz) 07/03/2023 8:06 AM SEWING MACHINE OPERATOR ZIPPER Height 162.6 cm (5' 4.02) 07/03/2023 8:06 AM CS T Body Mass Index 34.31 07/03/2023 8:06 AM SEWING MACHINE OPERATOR ZIPPER Plan of Treatment Health Maintenance Due Date Last Done Comments Colon Cancer Screening-Colonoscopy 1970 Depression Screening 1970 Hepatitis C Screening 1968 DTaP/Tdap/Td Vaccine (1 - Tdap) 01/25/1979 Hepatitis B Screening 01/25/1986 Regular Well Visit/Exam 18-64 01/25/1986 Pneumococcal vaccine <65 (1 of 2 - PCV) 01/25/1987 Zoster Vaccine (1 of 2) 01/25/2018 Covid-19 Vaccine (4 - 2023-2 5 season) 2024 09/29/2021, 08/03/2020, 07/01/2020 Breast Cancer Screening-Mammogram 07/03/2024 024 Influenza Vaccine (#1) 2025 3, 02/18/2017, 02/05/2014, Additional history exists Procedures Procedure Name Priority Date/Time Associated Diagnosis Comments DIAGNOSTIC MAMMOGRAM BILATERAL W ANDREW Schedule Routine, Read Routine (OP Routine) 07/03/2023 9:24 AM SEWING MACHINE OPERATOR ZIPPER Breast pain, left from Last 3 Months or Most Recently Relevant to Health Maintenance Results * Diagnostic Mammogram Bilateral W Andrew (07/03/2023 9:24 AM SEWING MACHINE OPERATOR ZIPPER) Anatomical Region Laterality Modality Breast Bilateral Mammography 07/03/2023 9:41 AM SEWING MACHINE OPERATOR ZIPPER Impressions 07/03/2023 9:43 AM SEWING MACHINE OPERATOR ZIPPER No mammographic evidence of malignancy within EITHER breast. OVERALL FINAL ASSESSMENT: BI-RADS Category 1: Negative. RECOMMENDATION: 1. Annual screening mammography is recommended. 2. Clinical follow-up is recommended. Dr. Llanos discussed the above findings and recommendations with the patient, who expressed her understanding of the management plan. Dictated by: Nick Llanos MD The radiology attending physician has personally reviewed this study, and had reviewed and/or edited this written report and agrees with it. Electronically signed by: Janene Shore M.D. Narrative 07/03/2023 9:43 AM SEWING MACHINE OPERATOR ZIPPER EXAMINATION: BILATERAL DIGITAL DIAGNOSTIC MAMMOGRAM INCLUDING CAD AND BILATERAL DIGITAL BREAST TOMOSYNTHESIS HISTORY: 53-year-old woman with 6 months of intermittent nonfocal LEFT breast pain along the outer breast from 11:00 to 4:00. Patient also reports asymmetric increased size of the LEFT breast for approximately 6 months. Patient endorses recent weight gain with increase in breast size. COMPARISON: Prior outside screening mammograms dating back to 2012, most recent screening mammogram 05/01/2018 TECHNIQUE: Full field digital mammographic views of BOTH breasts were performed, including computer aided detection (CAD) and BILATERAL digital breast tomosynthesis (DBT). BREAST PARENCHYMAL COMPOSITION: The breasts are almost entirely fatty. MAMMOGRAM FINDINGS: No suspicious mass, distortion, or calcification within EITHER breast. Procedure Note Janene Shore MD - 07/03/2023 EXAMINATION: BILATERAL DIGITAL DIAGNOSTIC MAMMOGRAM INCLUDING CAD AND BILATERAL DIGITAL BREAST TOMOSYNTHESIS HISTORY: 53-year-old woman with 6 months of intermittent nonfocal LEFT breast pain along the outer breast from 11:00 to 4:00. Patient also reports asymmetric increased size of the LEFT breast for approximately 6 months. Patient endorses recent weight gain with increase in breast size. COMPARISON: Prior outside screening mammograms dating back to 2012, most recent screening mammogram 05/01/2018 TECHNIQUE: Full field digital mammographic views of BOTH breasts were performed, including computer aided detection (CAD) and BILATERAL digital breast tomosynthesis (DBT). BREAST PARENCHYMAL COMPOSITION: The breasts are almost entirely fatty. MAMMOGRAM FINDINGS: No suspicious mass, distortion, or calcification within EITHER breast. IMPRESSION: No mammographic evidence of malignancy within EITHER breast. OVERALL FINAL ASSESSMENT: BI-RADS Category 1: Negative. RECOMMENDATION: 1. Annual screening mammography is recommended. 2. Clinical follow-up is recommended. Dr. Llanos discussed the above findings and recommendations with the patient, who expressed her understanding of the management plan. Dictated by: Nick Llanos MD The radiology attending physician has personally reviewed this study, and had reviewed and/or edited this written report and agrees with it. Electronically signed by: Janene Shore M.D. Trenton Lerma NP IMG MAMMO PROCEDURES Final Result from Last 3 Months or Most Recently Relevant to Health Maintenance Insurance [id number] Care Teams Protozoologist Relationship Specialty Start Date End Date Bk Mathew DO PCP - General Internal Medicine 05/16/23 Sushila Edmondson, PYROTECHNICIAN [facility] [facility] [address] [place] [id number] Registered Nurse Cardiovascular Disease 05/26/23
[2024-12-26 13:53] LABS: Hematocrit 42.1 % (37.0-47.0); Hemoglobin 13.6 g/dL (12.0-15.0); Immature Granulocyte Percent A 0.4 % (0-0.5); Lymphocytes Absolute Auto 1.84 K/mm3 (0.9-3.2); Mean Corpuscular HGB Conc 32.3 g/dl (32-36); Mean Corpuscular Hemoglobin 28.6 pg (26-34); Mean Corpuscular Volume 88.6 fl (80-100); Nucleated Red Blood Cells Absolute Auto 0.000 K/mm3 (0.0-0.012); Nucleated Red Blood Cells Perc 0.0 % (0.0-0.2); Platelet Count Result 426 k/mm3 (150-375); Red Blood Count 4.75 M/mm3 (4.2-5.4); White Blood Count 5.3 K/mm3 (4.5-10.0)
[2024-12-26 14:00] LABS: Alanine Aminotransferase 26 U/L (6-35); Albumin Level 4.2 g/dL (3.5-5.1); Alkaline Phosphatase 80 U/L (38-126); Anion Gap 8 mmol/L (4-12); Aspartate Amino Transferase 42 U/L (14-36); Bilirubin,Total 0.4 mg/dL (0.2-1.3); Blood Urea Nitrogen 13 mg/dL (7-17); Calcium 9.3 mg/dL (8.4-10.2); Carbon Dioxide 26 mmol/L (22-30); Chloride 102 mmol/L (98-107); Cholesterol 238 mg/dL (0-200); Estimated Glomerular Filt Rate 57; Glucose 91 mg/dL (65-110); HDL Direct 55 mg/dL; Potassium 4.4 mmol/L (3.4-5.0); Sodium 136 mmol/L (137-145); Total Protein 8.4 g/dL (6.3-8.2); Triglycerides 93 mg/dL (<150)
[2024-12-26 14:32] LABS: Hemoglobin A1C 6.0 % (<5.7)
[2024-12-26 14:36] LABS: Thyroid Stimulating Hormone 0.779 uIU/mL (0.465-4.680)
== END 2024-12-26 10:46 | disposition home or self-care (01) ==
LOC: ANHGOSHLAB 10:45
PROVIDERS: PCP Internal Medicine; Visit Provider Clinical Nurse Specialist
DX: R73.9 Hyperglycemia, unspecified (principal); Z13.29 Encounter for screening for other suspected endocrine disorder; Z13.220 Encounter for screening for lipoid disorders; R53.83 Other fatigue
CPT/HCPCS: 36415; 80053; 80061; 83036; 84443; 85025